=== PATIENT | male | born 1980 | race Caucasian/White ===

== ENCOUNTER 2016-12-07 08:41 | Emergency (ER) | payer OTHER ==
[2016-12-07 08:50] VITALS: BP 116/59; PULSE 85; RESP 16; TEMP 98.1; O2SAT 97
[2016-12-07 08:51] VITALS: BMI 30.9
--- NOTE | 2016-12-07 09:52 | ED PDOC ---
HPI: Skin/Bite Injury Time Seen by Provider: 12/07/16 09:00 Chief Complaint (Nursing): Abnormal Skin Integrity History Per: Patient (states onset of bumps on the back of the left hand 5 days ago. It was slightly itchy. He noticed that it has spread up the left forearm only. There is no other location of rash except for a single lesion on the right thumb. He was seen by his PMD 2 days ago and was started on Keflex for a different rash in the hairline where he had a hair cut. ) History/Exam Limitations: no limitations Past Medical History Reviewed: Historical Data, Nursing Documentation, Vital Signs Vital Signs: Last Vital Signs Temp 98.1 F 12/07/16 08:50 Pulse 85 12/07/16 08:50 Resp 16 12/07/16 08:50 BP 116/59 L 12/07/16 08:50 Pulse Ox 97 12/07/16 08:50 - Medical History PMH: No Chronic Diseases, Hyperlipidemia (not on meds) - Family History Family History: States: No Known Family Hx - Home Medications Home Medications: Ambulatory Orders Medication Instructions Recorded Azithromycin [Zithromax Z-Ron] 250 mg PO DAILY 5 Days tab 09/02/14 Triamcinolone 0.25% [Triamcinolone 1 appl TP BID #15 gr 12/07/16 0.25% Oint] - Allergies Allergies/Adverse Reactions: Allergies Allergy/AdvReac Type Severity Reaction Status Date / Time No Known Allergies Allergy Verified 12/07/16 09:04 Review of Systems ROS Statement: Except As Marked, All Systems Reviewed And Found Negative Constitutional: Negative for: Fever, Chills Respiratory: Negative for: Cough, Shortness of Breath Skin: Positive for: Rash. Negative for: Jaundice, Bruising Physical Exam - Reviewed Nursing Documentation Reviewed: Yes Vital Signs Reviewed: Yes - Physical Exam Appears: Positive for: Well, Non-toxic, No Acute Distress Head Exam: Positive for: ATRAUMATIC, NORMAL INSPECTION, NORMOCEPHALIC Skin: Positive for: Normal Color, Warm, DRY Eye Exam: Positive for: Normal appearance ENT: Positive for: Normal ENT Inspection Neck: Positive for: Normal Respiratory: Negative for: Respiratory Distress Back: Positive for: Normal Inspection Extremity: Positive for: Normal ROM Neurologic/Psych: Positive for: Alert, Oriented - ECG O2 Sat by Pulse Oximetry: 97 Disposition - Clinical Impression Clinical Impression: Dermatitis - Patient ED Disposition Is Patient to be Admitted: No Doctor Will See Patient In The: Office Counseled Patient/Family Regarding: Diagnosis, Need For Followup, Rx Given - Disposition Referrals: Kaleb Coleman MD [Staff Provider] - Disposition: Routine/Home Disposition Time: 09:40 Condition: STABLE Prescriptions: Triamcinolone 0.25% [Triamcinolone 0.25% Oint] 1 appl TP BID #15 gr Instructions: Dermatitis (ED) Forms: [facility] (Greek) - POA Present On Arrival: None
== END 2016-12-07 09:55 | disposition home or self-care (01) ==
LOC: H.ER 08:41
DX: L30.9 Dermatitis, unspecified (principal)

== ENCOUNTER 2018-03-25 04:16 | Emergency (ER) | payer OTHER ==
[2018-03-25 04:16] VITALS: BMI 30.9
[2018-03-25] MEDS ORDERED: Sodium Chloride 0.9% 1,000 ML IV STA (04:43)
--- NOTE | 2018-03-25 04:54 | ED PDOC ---
HPI: Abdomen Time Seen by Provider: 03/25/18 04:31 Chief Complaint (Nursing): Abdominal Pain Chief Complaint (Provider): Abdominal Pain History Per: Patient History/Exam Limitations: no limitations Onset/Duration Of Symptoms: Hrs (x2), Intermittent Episodes Pain Scale Rating Of: 7 Location Of Pain/Discomfort: Other (Right sided) Quality Of Discomfort: Sharp Associated Symptoms: denies: Nausea, Vomiting, Urinary Symptoms Additional Complaint(s): 37 years old male presents to ER for an evaluation of acute onset sharp right sided abdominal pain onset 2 hours ago. Patient reports pain is intermittent and rates it as 7 out of 10 scale. He reports radiation of pain to right flank and right testicle. Patient denies any nausea, vomiting or urinary symptoms. PMD: Yong Todd Past Medical History Reviewed: Historical Data, Nursing Documentation, Vital Signs Vital Signs: Last Vital Signs Temp 98.5 F 03/25/18 04:27 Pulse 62 03/25/18 04:27 Resp 17 03/25/18 04:27 BP 127/87 03/25/18 04:27 Pulse Ox 98 03/25/18 04:27 - Medical History PMH: Hyperlipidemia (not on meds) - Surgical History Other surgeries: Nasal polyps - Family History Family History: States: Unknown Family Hx - Social History Current smoker - smoking cessation education provided: No Alcohol: None Drugs: Denies - Home Medications Home Medications: Ambulatory Orders Medication Instructions Recorded Azithromycin [Zithromax Z-Ron] 250 mg PO DAILY 5 Days tab 09/02/14 Triamcinolone 0.25% [Triamcinolone 1 appl TP BID #15 gr 12/07/16 0.25% Oint] Tamsulosin [Flomax] 0.4 mg PO DAILY #10 cap 03/25/18 traMADol [Ultram] 50 mg PO TID PRN #8 tab 03/25/18 - Allergies Allergies/Adverse Reactions: Allergies Allergy/AdvReac Type Severity Reaction Status Date / Time Penicillins Allergy Mild RASH Verified 03/25/18 04:42 Review of Systems ROS Statement: Except As Marked, All Systems Reviewed And Found Negative Gastrointestinal: Positive for: Abdominal Pain (Right sided). Negative for: Nausea, Vomiting Genitourinary Male: Positive for: Other (Right testicle pain) Physical Exam - Reviewed Nursing Documentation Reviewed: Yes Vital Signs Reviewed: Yes - Physical Exam Appears: Positive for: Well, No Acute Distress Head Exam: Positive for: ATRAUMATIC, NORMOCEPHALIC Skin: Positive for: Normal Color, Warm, Dry Neck: Positive for: Normal, Painless ROM, Supple Cardiovascular/Chest: Positive for: Regular Rate, Rhythm. Negative for: Murmur Respiratory: Positive for: Normal Breath Sounds. Negative for: Wheezing Gastrointestinal/Abdominal: Positive for: Normal Exam, Soft. Negative for: Tenderness Back: Positive for: Normal Inspection. Negative for: L CVA Tenderness, R CVA Tenderness Extremity: Positive for: Normal ROM. Negative for: Pedal Edema, Swelling Neurologic/Psych: Positive for: Alert, Oriented (x3) - Laboratory Results Result Diagrams: 03/25/18 05:20 03/25/18 05:20 - ECG O2 Sat by Pulse Oximetry: 98 (RA) Pulse Ox Interpretation: Normal Medical Decision Making Medical Decision Making: Time: 437 Initial Impression: 37 y/o male with acute renal colic Initial Plan: --CT Abdomen/Pelvis --CMP --Urine dipstick --CBC --Toradol 30 mg IV --Urinalysis 0612 CT Abdomen/Pelvis FINDINGS: The visualized lung bases are unremarkable. Hypodense fatty unenhanced liver. Normal gallbladder and extrahepatic biliary system. Normal unenhanced spleen. Normal pancreas. Normal bilateral adrenal glands. Normal size of the right kidney. There is no right renal mass. There are no right renal calculi. 4.7 mm obstructing stone the right ureter at L3. Mild right hydroureteronephrosis. Normal size of the left kidney. There is no left renal mass. There are no left renal calculi. There is no left hydronephrosis. Normal visualized left ureter. Normal visualized stomach. Normal small intestine. Uncomplicated diverticulosis of the colon. The appendix is visualized and appears normal. There is no demonstrated peritoneal fluid. Normal abdominal aorta. Normal inferior vena cava. Normal retroperitoneum. Normal urinary bladder. There is no pelvic mass lesion or lymphadenopathy. There is no pelvic fluid. Chronic prostatic calcifications. Fat-containing umbilical hernia without incarceration. Normal osseous structures. IMPRESSION: Obstructing stone of the right ureter. 0617 Labs reviewed and show no clinically significant abnormality with the exception of hematuria on urinalysis Patient reports improvement in symptoms and is stable for discharge Clinical impression: Ureteral Calculus Scribe Attestation: Documented by Tracey Schultz, acting as a scribe Luke Vann MD. Provider Scribe Attestation: All medical record entries made by the Scribe were at my direction and per sonally dictated by me. I have reviewed the chart and agree that the record accurately reflects my personal performance of the history, physical exam, medical decision making, and the department course for this patient. I have also personally directed, reviewed, and agree with the discharge instructions and disposition. Disposition - Clinical Impression Clinical Impression: Ureteral calculus, right - Patient ED Disposition Is Patient to be Admitted: No - Disposition Referrals: Ian Medina Jr., MD [Staff Provider] - Disposition: Routine/Home Disposition Time: 06:17 Condition: STABLE Prescriptions: Tamsulosin [Flomax] 0.4 mg PO DAILY #10 cap traMADol [Ultram] 50 mg PO TID PRN #8 tab PRN Reason: flank/abdominal pain Instructions: Kidney Stones in Adults Forms: [facility] (Kazakh) Print Language: BAHRAINI
[2018-03-25 05:38] LABS: BASO # 0.1 K/uL (0.0-0.2); BASO % 0.8 % (0.0-2.0); EOS # 0.1 K/uL (0.0-0.7); EOS % 2.1 % (0.0-4.0); HEMOGLOBIN 13.8 g/dL (12.0-18.0); LYMPH # 2.5 K/uL (1.0-4.3); LYMPH % 35.4 % (20.0-40.0); MEAN CELL VOLUME 86.7 fl (80.0-94.0); MEAN CORPUSCULAR HEMOGLOBIN 29.4 pg (27.0-31.0); MEAN CORPUSCULAR HGB CONC 33.9 g/dL (33.0-37.0); MEAN PLATELET VOLUME 8.7 fl (7.2-11.7); MONO # 0.5 K/uL (0.0-0.8); MONO % 7.1 % (0.0-10.0); NEUT # 3.9 K/uL (1.8-7.0); NEUT % 54.6 % (50.0-75.0); NRBC % 0.1 % (0.0-0.0); RBC 4.69 Mil/uL (4.40-5.90); RED CELL DISTRIBUTION WIDTH 13.1 % (11.5-14.5); WHITE BLOOD COUNT 7.1 K/uL (4.8-10.8)
[2018-03-25 05:45] LABS: ALB/GLOB RATIO 1.3 (1.0-2.1); ALBUMIN 4.5 g/dL (3.5-5.0); ALT/SGPT 73 U/L (21-72); AST/SGOT 43 U/L (17-59); BLOOD UREA NITROGEN 29 mg/dl (9-20); CALCIUM 9.2 mg/dL (8.4-10.2); GFR NON-AFRICAN AMERICAN > 60
[2018-03-25 06:02] LABS: URINE BACTERIA RARE (<OCC); URINE BILIRUBIN NEGATIVE (NEGATIVE); URINE BLOOD LARGE (NEGATIVE); URINE CLARITY CLOUDY (Clear); URINE COLOR AMBER (YELLOW); URINE GLUCOSE (UA) NEG (NEGATIVE); URINE LEUKOCYTE ESTERASE NEG Leu/uL (Negative); URINE PROTEIN 100 mg/dL (NEGATIVE); URINE UROBILINOGEN 0.2-1.0 mg/dL (0.2-1.0)
[2018-03-25 07:04] VITALS: BP 113/66; PULSE 72; RESP 18; TEMP 97.6; O2SAT 97
--- NOTE | 2018-03-25 11:27 | CT ---
Date of service: 03/25/2018 PROCEDURE: CT Abdomen and Pelvis without intravenous contrast HISTORY: renal colic COMPARISON: None. TECHNIQUE: Contiguous images were obtained from the domes of the diaphragms to the upper thighs without the administration of intravenous contrast. Oral contrast was not administered. Radiation dose: Total exam DLP = 746.66 mGy-cm. This CT exam was performed using one or more of the following dose reduction techniques: Automated exposure control, adjustment of the mA and/or kV according to patient size, and/or use of iterative reconstruction technique. FINDINGS: LOWER THORAX: Unremarkable. LIVER: Hepatic steatosis. No gross lesion or ductal dilatation. GALLBLADDER AND BILE DUCTS: Unremarkable. PANCREAS: Unremarkable. No gross lesion or ductal dilatation. SPLEEN: Unremarkable. ADRENALS: Unremarkable. No mass. KIDNEYS AND URETERS: 6 mm proximal right ureteral calculus causing mild hydronephrosis. No hydronephrosis. No solid mass. VASCULATURE: Unremarkable. No aortic aneurysm. No aortic atherosclerotic calcification or mural plaque present. BOWEL: Unremarkable. No obstruction. No gross mural thickening. APPENDIX: Unremarkable. Normal appendix. PERITONEUM: Unremarkable. No free fluid. No free air. LYMPH NODES: Unremarkable. No enlarged lymph nodes. BLADDER: Unremarkable. REPRODUCTIVE: Unremarkable. BONES: No acute fracture. OTHER FINDINGS: None. IMPRESSION: 6 mm proximal right ureteral calculus causing mild hydronephrosis..
--- NOTE | 2018-03-25 13:47 | CARD ---
APPROVED REPORT Date of service: 03/25/2018 EKG Measurement Heart [id number] <Conclusion> Normal sinus rhythm Normal ECG
== END 2018-03-25 06:45 | disposition home or self-care (01) ==
LOC: H.ER 04:16
DX: N20.1 Calculus of ureter (principal); E78.5 Hyperlipidemia, unspecified; Z88.0 Allergy status to penicillin; K57.30 Diverticulosis of large intestine without perforation or abscess without bleeding
CPT/HCPCS: 74176; 80053; 81003; 85025; 93005; 96360; 99283; J1885; J7030

== ENCOUNTER 2018-03-27 14:11 | Inpatient (IN) | payer OTHER ==
[2018-03-27 14:11] VITALS: BMI 30.9
[2018-03-27] MEDS ORDERED: Sodium Chloride 0.9% 1,000 ML IV STA ×2 (15:05→19:21)
[2018-03-27] MEDS ORDERED: Lidocaine 122 MG in Sodium Chloride 0.9% 100 ML IV STA (15:08)
[2018-03-27 15:23] LABS: BASO # 0.1 K/uL (0.0-0.2); BASO % 0.6 % (0.0-2.0); EOS # 0.2 K/uL (0.0-0.7); EOS % 2.1 % (0.0-4.0); HEMOGLOBIN 13.4 g/dL (12.0-18.0); LYMPH % 33.5 % (20.0-40.0); MEAN CELL VOLUME 86.5 fl (80.0-94.0); MEAN CORPUSCULAR HEMOGLOBIN 29.4 pg (27.0-31.0); MEAN PLATELET VOLUME 8.7 fl (7.2-11.7); MONO # 0.5 K/uL (0.0-0.8); MONO % 5.2 % (0.0-10.0); NEUT # 5.3 K/uL (1.8-7.0); NEUT % 58.6 % (50.0-75.0); NRBC % 0.1 % (0.0-0.0); RBC 4.56 Mil/uL (4.40-5.90); RED CELL DISTRIBUTION WIDTH 13.3 % (11.5-14.5)
[2018-03-27 15:38] LABS: ALB/GLOB RATIO 1.3 (1.0-2.1); ALBUMIN 4.4 g/dL (3.5-5.0); ALT/SGPT 66 U/L (21-72); AST/SGOT 33 U/L (17-59); BLOOD UREA NITROGEN 21 mg/dl (9-20); CALCIUM 9.3 mg/dL (8.4-10.2); GFR NON-AFRICAN AMERICAN > 60
--- NOTE | 2018-03-27 15:55 | ED PDOC ---
HPI: Abdomen Time Seen by Provider: 03/27/18 14:38 Chief Complaint (Nursing): Abdominal Pain Chief Complaint (Provider): Abdominal Pain History Per: Patient History/Exam Limitations: no limitations Onset/Duration Of Symptoms: Days Current Symptoms Are (Timing): Still Present Additional Complaint(s): 37 y/o male with a PMHx of hyperlipidemia presents to the ED for evaluation of right sided groin pain radiating to the right flank, onset several days ago. Patient was seen for same symptoms two days ago and diagnosed with a kidney stone. Patient was prescribed with Flomax and Ultram with no relief of symptoms. Patient states pain has not propagated. Otherwise, patient denies fever, vomiting, diarrhea and history of previous kidney stones. PMD: none provided Past Medical History Reviewed: Historical Data, Nursing Documentation, Vital Signs Vital Signs: Last Vital Signs Temp 97.8 F 03/27/18 14:33 Pulse 61 03/27/18 14:33 Resp 18 03/27/18 14:33 BP 130/66 03/27/18 14:33 Pulse Ox 98 03/27/18 14:33 - Medical History PMH: Hyperlipidemia (not on meds), Kidney Stones - Surgical History Surgical History: No Surg Hx - Family History Family History: States: Unknown Family Hx - Home Medications Home Medications: Ambulatory Orders Medication Instructions Recorded Tamsulosin [Flomax] 0.4 mg PO DAILY #10 cap 03/25/18 traMADol [Ultram] 50 mg PO TID PRN #8 tab 03/25/18 - Allergies Allergies/Adverse Reactions: Allergies Allergy/AdvReac Type Severity Reaction Status Date / Time Penicillins Allergy Mild RASH Verified 03/27/18 14:33 Review of Systems ROS Statement: Except As Marked, All Systems Reviewed And Found Negative Constitutional: Negative for: Fever Gastrointestinal: Negative for: Vomiting, Diarrhea Genitourinary Male: Positive for: Other (right groin pain) Musculoskeletal: Positive for: Back Pain (right flank pain) Physical Exam - Reviewed Nursing Documentation Reviewed: Yes Vital Signs Reviewed: Yes - Physical Exam Appears: Positive for: Non-toxic, In Acute Distress (moderate, painful distress, writhing in pain. ) Skin: Positive for: Normal Color, Warm, Dry Eye Exam: Positive for: Normal appearance, EOMI Cardiovascular/Chest: Positive for: Regular Rate, Rhythm Respiratory: Positive for: Normal Breath Sounds. Negative for: Respiratory Distress Gastrointestinal/Abdominal: Positive for: Normal Exam, Soft. Negative for: Tenderness Back: Positive for: R CVA Tenderness. Negative for: L CVA Tenderness Neurologic/Psych: Positive for: Alert, Oriented (x3) - Laboratory Results Result Diagrams: 03/27/18 15:14 03/27/18 15:14 Lab Results: Total Bilirubin 0.4 mg/dl (0.2-1.3) 03/27/18 15:14 AST 33 U/L (17-59) 03/27/18 15:14 ALT 66 U/L (21-72) 03/27/18 15:14 Alkaline Phosphatase 90 U/L (38-126) 03/27/18 15:14 Total Protein 7.6 G/DL (6.3-8.2) 03/27/18 15:14 Albumin 4.4 g/dL (3.5-5.0) 03/27/18 15:14 Globulin 3.3 gm/dL (2.2-3.9) 03/27/18 15:14 Albumin/Globulin Ratio 1.3 (1.0-2.1) 03/27/18 15:14 - ECG O2 Sat by Pulse Oximetry: 98 (RA) Pulse Ox Interpretation: Normal Medical Decision Making Medical Decision Making: Time: 1508 Plan: -- Renal US -- Urinalysis -- IV Insertion -- Plastics Bench Mechanic -- Zofran Inj 4 mg IVP -- Tylenol 975 mg PO -- Toradol 30 mg IVP -- Sodium chloride IV 1000 mls/hr -- Lidoderm 122 mg Sodium Chloride 100 ml IV -- CBC with Differentials -- ED Urine Dipstick -- CMP Time: 1541 Plan: -- KUB -- Case discussed with Dr. Hines, who agrees with plan of care. Time: 154 -- Discussed with Dr. Rosario, Urology conveyor belt installer and informed of previous diagnostic results and current available diagnostic. Provider requests repeat CT despite CT being done two days ago. On re-evaluation, patient appears to be in less pain confirmed initially 11/09 and is now 5-6/10. Patient does report of right testicular pain. KUB and Renal US canceled. Testicular US and CT Abd/Pelvis ordered. On genitourinary exam, normal external genitalian noted with no testicular tenderness, sweling bilaterally or lesions. -- CT Abd/Pelvis w/o PO or IV Contrast -- Testicular US 1820 Pt. reports pain still present but has improved. CT abd/pelvis: Caculus measuring approximately 6x9mm at the R proximal ureter with mild R hydro. Mild R perineprhic stranding. Results d/w Dr. Medina and recommends admission and NPO after midnight. States pt. does not require meds at this time. Case d/w Dr. Noriega and arrangements made for admission. Also requests pt. be given IV Abx. Cipro IV ordered. Pt. informed of plan. All questions answered. Pt. agrees with plan and care. Scribe Attestation: Documented by Pieter Acosta, acting as a scribe for Vasquez Hoover PA-C. Provider Scribe Attestation: All medical record entries made by the Scribe were at my direction and personally dictated by me. I have reviewed the chart and agree that the record accurately reflects my personal performance of the history, physical exam, medical decision making, and the department course for this patient. I have also personally directed, reviewed, and agree with the discharge instructions and disposition. Disposition - Clinical Impression Clinical Impression: Nephrolithiasis - Patient ED Disposition Is Patient to be Admitted: Yes - Disposition Disposition Time: 18:20 Condition: FAIR - Pt Status Changed To: Hospital Disposition Of: Inpatient - Admit Certification Admit to Inpatient:: After my assessment, the patient will require hospitalization for at least two midnights. This is because of the severity of symptoms shown, intensity of services needed, and/or the medical risk in this patient being treated as an outpatient.
--- NOTE | 2018-03-27 17:30 | US ---
Date of service: 03/27/2018 PROCEDURE: Ultrasound of the Kidneys HISTORY: Right renal calculi COMPARISON: None available. TECHNIQUE: Sonogram of the kidneys. FINDINGS: RIGHT KIDNEY: Measures: 10.9 x 5.9 x 6.0 cm. Normal in size, contour and echogenicity.. There is mild right-sided hydronephrosis. No shadowing calculi or solid mass lesion visualized. Mild right-sided hydronephrosis. LEFT KIDNEY: Measures: 11.5 x 4.6 x 5.0 cm. Normal in size, contour and echogenicity. No stone, solid mass lesion or hydronephrosis visualized. OTHER FINDINGS: Urinary bladder prevoid volume calculated at 141 cc.. Both both ureteral jets are visualized. IMPRESSION: Mild right-sided hydronephrosis.
--- NOTE | 2018-03-27 17:32 | US ---
Date of service: 03/27/2018 HISTORY: R testicular pain TECHNIQUE: Realtime sonography through the scrotum with color and doppler flow. COMPARISON: No prior study available for comparison FINDINGS: RIGHT TESTICLE: Measures 4.0 x 2.5 x 2.0 cm. Normal echotexture and flow. RIGHT EPIDIDYMIS: Epididymal head measures 1.1 x 0.8 x 1.3 with small cyst and/or spermatocele measuring 5 mm in greatest dimension. A the grossly unremarkable appearance with normal flow. LEFT TESTICLE: Measures 4.1 x 2.6 x 2.1 cm. Normal echotexture and flow. LEFT EPIDIDYMIS: Epididymal head measures 1.0 x 0.7 x 1.0 cm. Grossly unremarkable appearance with normal flow. HYDROCELE: There are bilateral hydroceles present. VARICOCELE: None. OTHER FINDINGS: None. IMPRESSION: The small bilateral hydroceles. Small cyst and/or spermatocele right epididymis.
[2018-03-27 17:34] LABS: SQUAMOUS EPITHIAL < 1 /hpf (0-5); URINE BILIRUBIN NEGATIVE (NEGATIVE); URINE BLOOD MODERATE (NEGATIVE); URINE CLARITY CLEAR (Clear); URINE COLOR YELLOW (YELLOW); URINE GLUCOSE (UA) NEG (NEGATIVE); URINE LEUKOCYTE ESTERASE NEG Leu/uL (Negative); URINE PROTEIN NEGATIVE (NEGATIVE); URINE UROBILINOGEN 0.2-1.0 mg/dL (0.2-1.0)
[2018-03-27] MEDS ORDERED: Ciprofloxacin 400mg/200ml D5W 400 MG/200 ML BAG IVPB STA (19:21)
[2018-03-27 21:17] LABS: PROTHROMBIN TIME 10.9 Seconds (9.8-13.1)
[2018-03-27 21:21] LABS: PARTIAL THROMBOPLASTIN TIME 37.1 Seconds (25.6-37.1)
[2018-03-27] MEDS: Sodium Chloride 0.45% 1,000 ML IV SCH (22:37)
[2018-03-28] MEDS: Sodium Chloride 0.45% 1,000 ML IV SCH ×2 (08:44→08:59)
[2018-03-28] MEDS ORDERED: Ciprofloxacin 400mg/200ml D5W 400 MG/200 ML BAG IVPB SCH (09:00)
[2018-03-28] MEDS ORDERED: Enoxaparin 40 mg Syringe SC SCH (09:00)
--- NOTE | 2018-03-28 10:00 | CT ---
Date of service: 03/27/2018 PROCEDURE: CT Abdomen and Pelvis.. HISTORY: 4.7mm right ureteral stone COMPARISON: Comparison made with prior study 03/25/2018 TECHNIQUE: Contiguous helical/transaxial images of the abdomen and pelvis performed without oral or intravenous contrast material. Additional 2D sagittal and coronal reformats generated. Radiation dose: Total exam DLP = 800.92 mGy-cm. This CT exam was performed using one or more of the following dose reduction techniques: Automated exposure control, adjustment of the mA and/or kV according to patient size, and/or use of iterative reconstruction technique. FINDINGS: LOWER THORAX: Lung bases clear. No infiltrate effusion or basilar pneumothorax. Small hiatal hernia LIVER: Liver is borderline/mildly enlarged measuring nearly 19 cm in CC dimension. Moderate diffuse fatty hepatic infiltration.. GALLBLADDER AND BILE DUCTS: Unremarkable. PANCREAS: Unremarkable. No mass. No ductal dilatation. SPLEEN: Unremarkable. No splenomegaly. ADRENALS: Unremarkable. KIDNEYS AND URETERS: There is a 5.9 by 9 mm obstructing calculus within the proximal/right ureter at the UVJ region with mild right-sided hydronephrosis. BLADDER: Grossly unremarkable. REPRODUCTIVE: Unremarkable. APPENDIX: Appendix unremarkable BOWEL: Evaluation of the bowel slightly limited due to lack of oral contrast material. The stomach is the partially distended with food debris liquid and air. Visualized loops of small bowel exhibit normal contour and caliber. No evidence of acute mechanical small bowel obstruction. Cecum, ascending as well as transverse colon with lesser amount throughout the remaining colon. Findings suggest mild constipation. The is ascending PERITONEUM: Unremarkable. No fluid collection. No free air. Small fat containing umbilical hernia. LYMPH NODES: Unremarkable. No enlarged lymph nodes. VASCULATURE: Unremarkable. No aortic aneurysm. No aortic atherosclerotic calcification or mural plaque present. BONES: No fracture or destructive lesion. OTHER FINDINGS: None. IMPRESSION: 5.9 x 9.0 mm calculus UPJ region right ureter with mild right-sided hydronephrosis. Borderline/mild hepatomegaly with moderate fatty hepatic infiltration.
[2018-03-28] MEDS ORDERED: Gentamicin 80mg/50ml NS 160 MG/100 ML BAG IVPB ONE (10:18)
[2018-03-28] MEDS ORDERED: Lidocaine 2% Jelly (Uro-Jet) ONE (10:18)
[2018-03-28] MEDS ORDERED: Propofol 10 mg/ml Inj (20 ML) ONE (10:18)
[2018-03-28] MEDS ORDERED: Midazolam 2 MG/2 ML VIAL ONE (10:45)
[2018-03-28] MEDS ORDERED: Lactated Ringer's 1,000 ML IV ONE (10:45)
--- NOTE | 2018-03-28 10:45 | CP.PCM.HP ---
History of Present Illness - History of Present Illness History of Present Illness: CC: Right Groin Pain History of Present Illness: A 37 y/o male with a PMHx of hyperlipidemia presents to the ED for evaluation of right sided groin pain radiating to the right flank, onset several days ago. Patient was seen for same symptoms two days ago and diagnosed with a kidney stone. Patient was prescribed with Flomax and Ultram with no relief of symptoms. Patient states pain has not propagated. Otherwise, patient denies fever, vomiting, diarrhea and history of previous kidney stones. Present on Admission - Present on Admission Any Indicators Present on Admission: No Review of Systems - Review of Systems All systems: reviewed and no additional remarkable complaints except Review of Systems: as Per HPI Past Patient History - Past Medical History & Family History Past Medical History?: Yes Past Family History: Reviewed and not pertinent - Past Social History Smoking Status: Never Smoked Alcohol: Social Drugs: Denies - CARDIAC Hx Cardiac Disorders: Yes Other/Comment: hyperlipidemia - PULMONARY Hx Respiratory Disorders: No - NEUROLOGICAL Hx Neurological Disorder: No - HEENT Hx HEENT Problems: Yes Other/Comment: history of nasal polyps - RENAL Hx Chronic Kidney Disease: Yes Hx Kidney Stones: Yes - ENDOCRINE/METABOLIC Hx Endocrine Disorders: No - HEMATOLOGICAL/ONCOLOGICAL Hx Blood Disorders: No - INTEGUMENTARY Hx Dermatological Problems: No - MUSCULOSKELETAL/RHEUMATOLOGICAL Hx Musculoskeletal Disorders: No Hx Falls: No - GASTROINTESTINAL Hx Gastrointestinal Disorders: No - GENITOURINARY/GYNECOLOGICAL Hx Genitourinary Disorders: Yes Other/Comment: renal calculus obstruction - PSYCHIATRIC Hx Psychophysiologic Disorder: No Hx Substance Use: No - SURGICAL HISTORY Hx Surgeries: Yes Other/Comment: removal of nasal polyps - ANESTHESIA Hx Anesthesia: Yes Hx Anesthesia Reactions: No Meds Allergies/Adverse Reactions: Allergies Allergy/AdvReac Type Severity Reaction Status Date / Time Penicillins Allergy Mild RASH Verified 03/27/18 14:33 Results - Vital Signs Recent Vital Signs: Last Vital Signs Temp 97.7 F 03/28/18 10:00 Pulse 60 03/28/18 10:00 Resp 20 03/28/18 10:00 BP 110/69 03/28/18 10:00 Pulse Ox 96 03/28/18 10:00 - Labs Result Diagrams: 03/27/18 15:14 03/27/18 15:14 Labs: Laboratory Results - last 24 hr 03/27/18 03/27/18 03/27/18 15:14 15:14 17:16 WBC 9.0 RBC 4.56 Hgb 13.4 Hct 39.5 MCV 86.5 MCH 29.4 MCHC 34.0 RDW 13.3 Plt Count 250 MPV 8.7 Neut % (Auto) 58.6 Lymph % (Auto) 33.5 [place] % (Auto) 5.2 Eos % (Auto) 2.1 Baso % (Auto) 0.6 Neut # (Auto) 5.3 Lymph # (Auto) 3.0 [place] # (Auto) 0.5 Eos # (Auto) 0.2 Baso # (Auto) 0.1 PT INR APTT Sodium 139 Potassium 4.1 Chloride 98 Carbon Dioxide 28 Anion Gap 17 BUN 21 H Creatinine 1.1 Est GFR ( Amer) > 60 Est GFR (Non-Af Amer) > 60 Random Glucose 119 H Calcium 9.3 Total Bilirubin 0.4 AST 33 ALT 66 Alkaline Phosphatase 90 Total Protein 7.6 Albumin 4.4 Globulin 3.3 Albumin/Globulin Ratio 1.3 Urine Color Yellow Urine Clarity Clear Urine pH 6.0 Ur Specific [place] 1.014 Urine Protein Negative Urine Glucose (UA) Neg Urine Ketones Negative Urine Blood Moderate Urine Nitrate Negative Urine Bilirubin Negative Urine Urobilinogen 0.2-1.0 Ur Leukocyte Esterase Neg Urine RBC (Auto) 12 H Urine Microscopic WBC 1 Ur Squamous Epith Cells < 1 03/27/18 20:56 WBC RBC Hgb Hct MCV MCH MCHC RDW Plt Count MPV Neut % (Auto) Lymph % (Auto) [place] % (Auto) Eos % (Auto) Baso % (Auto) Neut # (Auto) Lymph # (Auto) [place] # (Auto) Eos # (Auto) Baso # (Auto) PT 10.9 INR 1.0 APTT 37.1 Sodium Potassium Chloride Carbon Dioxide Anion Gap BUN Creatinine Est GFR ( Amer) Est GFR (Non-Af Amer) Random Glucose Calcium Total Bilirubin AST ALT Alkaline Phosphatase Total Protein Albumin Globulin Albumin/Globulin Ratio Urine Color Urine Clarity Urine pH Ur Specific [place] Urine Protein Urine Glucose (UA) Urine Ketones Urine Blood Urine Nitrate Urine Bilirubin Urine Urobilinogen Ur Leukocyte Esterase Urine RBC (Auto) Urine Microscopic WBC Ur Squamous Epith Cells - Imaging and Cardiology CT scan Asbdome/Pelvis:\ Additional comment: Date of service: 03/27/2018 PROCEDURE: CT Abdomen and Pelvis.. HISTORY: 4.7mm right ureteral stone COMPARISON: Comparison made with prior study 03/25/2018 TECHNIQUE: Contiguous helical/transaxial images of the abdomen and pelvis performed without oral or intravenous contrast material. Additional 2D sagittal and coronal reformats generated. Radiation dose: Total exam DLP = 800.92 mGy-cm. This CT exam was performed using one or more of the following dose reduction techniques: Automated exposure control, adjustment of the mA and/or kV according to patient size, and/or use of iterative reconstruction technique. FINDINGS: LOWER THORAX: Lung bases clear. No infiltrate effusion or basilar pneumothorax. Small hiatal hernia LIVER: Liver is borderline/mildly enlarged measuring nearly 19 cm in CC dimension. Moderate diffuse fatty hepatic infiltration.. GALLBLADDER AND BILE DUCTS: Unremarkable. PANCREAS: Unremarkable. No mass. No ductal dilatation. SPLEEN: Unremarkable. No splenomegaly. ADRENALS: Unremarkable. KIDNEYS AND URETERS: There is a 5.9 by 9 mm obstructing calculus within the proximal/right ureter at the UVJ region with mild right-sided hydronephrosis. BLADDER: Grossly unremarkable. REPRODUCTIVE: Unremarkable. APPENDIX: Appendix unremarkable BOWEL: Evaluation of the bowel slightly limited due to lack of oral contrast material. The stomach is the partially distended with food debris liquid and air. Visualized loops of small bowel exhibit normal contour and caliber. No evidence of acute mechanical small bowel obstruction. Cecum, ascending as well as transverse colon with lesser amount throughout the remaining colon. Findings suggest mild constipation. The is ascending PERITONEUM: Unremarkable. No fluid collection. No free air. Small fat containing umbilical hernia. LYMPH NODES: Unremarkable. No enlarged lymph nodes. VASCULATURE: Unremarkable. No aortic aneurysm. No aortic atherosclerotic calcification or mural plaque present. BONES: No fracture or destructive lesion. OTHER FINDINGS: None. IMPRESSION: 5.9 x 9.0 mm calculus UPJ region right ureter with mild right-sided hydronephrosis. Borderline/mild hepatomegaly with moderate fatty hepatic infiltration. Assessment & Plan (1) Ureteral calculus, right Assessment and Plan: with Right Hydronephrosis NPO Past Midnight for Cystoscopy and Possible stents IVF IV Ciprofloxacin Pain medication PRN Flomax Urology Consulted Status: Acute Priority: High
[2018-03-28] MEDS ORDERED: HYDROmorphone 0.5 mg/0.5 ml ISec IVP PRN (11:19)
[2018-03-28] MEDS ORDERED: Lactated Ringer's 1,000 ML IV SCH (11:30)
--- NOTE | 2018-03-28 14:15 | RAD ---
Date of service: 03/27/2018 HISTORY: Preoperative assessment COMPARISON: Comparison made with prior study 09/02/2014 TECHNIQUE: Chest PA and lateral FINDINGS: LUNGS: No active pulmonary disease. PLEURA: No significant pleural effusion identified. No pneumothorax apparent. CARDIOVASCULAR: No aortic atherosclerotic calcification present. Normal cardiac size. No pulmonary vascular congestion. OSSEOUS STRUCTURES: No significant abnormalities. VISUALIZED UPPER ABDOMEN: Normal. OTHER FINDINGS: None. IMPRESSION: No active disease.
[2018-03-28 16:38] VITALS: BP 116/71; PULSE 62; RESP 18; TEMP 98.4; O2SAT 97
--- NOTE | 2018-03-28 21:37 | CARD ---
APPROVED REPORT Date of service: 03/28/2018 EKG Measurement Heart [id number] <Conclusion> Sinus bradycardia Otherwise normal ECG
--- NOTE | 2018-03-28 22:16 | CP.PCM.DIS ---
Provider - Provider Date of Admission: 03/27/18 19:17 Attending physician: Car Noriega MD Consults: 03/27/18 18:57 Urology Consult Stat Comment: Consulting Provider: Ian Medina Jr. Consulting Physician: Ian Medina Jr. Reason for Consult: kidney stone Time Spent in preparation of Discharge (in minutes): 20 Diagnosis - Discharge Diagnosis (1) Hydronephrosis Status: Acute (2) UTI (urinary tract infection) Status: Acute Priority: Medium (3) Ureteral calculus, right Status: Acute Priority: High Hospital Course - Lab Results Lab Results: Most Recent Lab Values WBC 9.0 K/uL (4.8-10.8) 03/27/18 15:14 RBC 4.56 Mil/uL (4.40-5.90) 03/27/18 15:14 Hgb 13.4 g/dL (12.0-18.0) 03/27/18 15:14 Hct 39.5 % (35.0-51.0) 03/27/18 15:14 MCV 86.5 fl (80.0-94.0) 03/27/18 15:14 MCH 29.4 pg (27.0-31.0) 03/27/18 15:14 MCHC 34.0 g/dL (33.0-37.0) 03/27/18 15:14 RDW 13.3 % (11.5-14.5) 03/27/18 15:14 Plt Count 250 K/uL (130-400) 03/27/18 15:14 MPV 8.7 fl (7.2-11.7) 03/27/18 15:14 Neut % (Auto) 58.6 % (50.0-75.0) 03/27/18 15:14 Lymph % (Auto) 33.5 % (20.0-40.0) 03/27/18 15:14 [place] % (Auto) 5.2 % (0.0-10.0) 03/27/18 15:14 Eos % (Auto) 2.1 % (0.0-4.0) 03/27/18 15:14 Baso % (Auto) 0.6 % (0.0-2.0) 03/27/18 15:14 Neut # (Auto) 5.3 K/uL (1.8-7.0) 03/27/18 15:14 Lymph # (Auto) 3.0 K/uL (1.0-4.3) 03/27/18 15:14 [place] # (Auto) 0.5 K/uL (0.0-0.8) 03/27/18 15:14 Eos # (Auto) 0.2 K/uL (0.0-0.7) 03/27/18 15:14 Baso # (Auto) 0.1 K/uL (0.0-0.2) 03/27/18 15:14 PT 10.9 Seconds (9.8-13.1) 03/27/18 20:56 INR 1.0 03/27/18 20:56 APTT 37.1 Seconds (25.6-37.1) 03/27/18 20:56 Sodium 139 mmol/l (132-148) 03/27/18 15:14 Potassium 4.1 MMOL/L (3.6-5.0) 03/27/18 15:14 Chloride 98 mmol/L (98-107) 03/27/18 15:14 Carbon Dioxide 28 mmol/L (22-30) 03/27/18 15:14 Anion Gap 17 (10-20) 03/27/18 15:14 BUN 21 mg/dl (9-20) H 03/27/18 15:14 Creatinine 1.1 mg/dl (0.8-1.5) 03/27/18 15:14 Est GFR ( Amer) > 60 03/27/18 15:14 Est GFR (Non-Af Amer) > 60 03/27/18 15:14 Random Glucose 119 mg/dL (75-110) H 03/27/18 15:14 Calcium 9.3 mg/dL (8.4-10.2) 03/27/18 15:14 Total Bilirubin 0.4 mg/dl (0.2-1.3) 03/27/18 15:14 AST 33 U/L (17-59) 03/27/18 15:14 ALT 66 U/L (21-72) 03/27/18 15:14 Alkaline Phosphatase 90 U/L (38-126) 03/27/18 15:14 Total Protein 7.6 G/DL (6.3-8.2) 03/27/18 15:14 Albumin 4.4 g/dL (3.5-5.0) 03/27/18 15:14 Globulin 3.3 gm/dL (2.2-3.9) 03/27/18 15:14 Albumin/Globulin Ratio 1.3 (1.0-2.1) 03/27/18 15:14 Urine Color Yellow (YELLOW) 03/27/18 17:16 Urine Clarity Clear (Clear) 03/27/18 17:16 Urine pH 6.0 (5.0-8.0) 03/27/18 17:16 Ur Specific [place] 1.014 (1.003-1.030) 03/27/18 17:16 Urine Protein Negative mg/dL (NEGATIVE) 03/27/18 17:16 Urine Glucose (UA) Neg mg/dL (NEGATIVE) 03/27/18 17:16 Urine Ketones Negative mg/dL (NEGATIVE) 03/27/18 17:16 Urine Blood Moderate (NEGATIVE) 03/27/18 17:16 Urine Nitrate Negative (NEGATIVE) 03/27/18 17:16 Urine Bilirubin Negative (NEGATIVE) 03/27/18 17:16 Urine Urobilinogen 0.2-1.0 mg/dL (0.2-1.0) 03/27/18 17:16 Ur Leukocyte Esterase Neg [place]/uL (Negative) 03/27/18 17:16 Urine RBC (Auto) 12 /hpf (0-3) H 03/27/18 17:16 Urine Microscopic WBC 1 /hpf (0-5) 03/27/18 17:16 Ur Squamous Epith Cells < 1 /hpf (0-5) 03/27/18 17:16 Discharge Plan - Follow Up Plan Condition: FAIR Disposition: HOME/ ROUTINE Instructions: Cystoscopy, Ureteral Stent (DC) Additional Instructions: No heavy lifting Follow-up with Dr Medina in 1 week - [phone] Follow-up with Dr. Noriega in 1 week - [phone]
--- NOTE | 2018-03-29 00:33 | OP ---
PROCEDURE DATE: 03/28/2018 PREOPERATIVE DIAGNOSIS: Right upper ureteral calculi. POSTOPERATIVE DIAGNOSIS: Right upper ureteral calculi. PROCEDURE: Cystoscopy and insertion of double-J stent. FINDINGS: A stone impacted at the right UPJ. DESCRIPTION OF PROCEDURE: The patient was draped and prepped in the usual manner after a time-out was taken according to rules and regulations of [facility]. Prior to procedure, he had signed a detailed informed consent. After all risks, complications and alternate methods of managing a upper ureteral calculi were reviewed with the patient, he elected to proceed with cystoscopy and stent insertion and fully is aware that other procedures will be necessary to break or remove the stone. The patient was brought in the room. A time-out was taken according to the rules and regulations of [facility] and the patient was placed on the table. He was placed in lithotomy position and cystoscoped with a #21 Storz panendoscope. The patient's pendulous membranous urethra was normal. Prostatic urethra showed minimal to moderate bladder outlet obstruction from lateral lobe enlargement. The bladder was entered atraumatically. There were no stones within the bladder. The left ureteral orifice effluxed clear urine. There was no efflux from the right. A Sensor-tip guidewire was passed into the right ureteral orifice and under fluoroscopic control passed up above the stone and into the renal pelvis. A 6-[place] double-J stent was then passed over this guidewire and the stent was deployed leaving the distal end curled within the bladder. The patient tolerated this procedure well. He was sent to the recovery room in good condition. I discussed this case with Dr. Noriega, the admitting physician and the patient's father and mother. The patient will return to our office next week for further treatment. Ian Medina MD
--- NOTE | 2018-03-29 08:56 | CON ---
DATE: 03/27/2018 CHIEF COMPLAINT: Right flank pain. HISTORY OF PRESENT ILLNESS: The patient was in the emergency room at [facility] several days ago and was diagnosed with right upper ureteral calculi. He was placed on Flomax and pain medications, discharged and told to follow up with the urologist. He failed to follow up the urologist. The pain returned and it was more severe. He came back to the emergency room. While in the emergency room, the patient was evaluated with a repeat CT, which shows a stone at the right UPJ. The patient is still complaining of pain even though he has been medicated. The patient has no history of prior calculi. PHYSICAL EXAMINATION: VITAL SIGNS: Within normal limits. HEAD, EARS, EYES, NOSE AND THROAT: Within normal limits. NECK: Supple. There are no bruits, nodes or masses. CHEST: Clear. There are no rales or rhonchi. There are good breath sounds bilaterally. HEART: Normal sinus rhythm. ABDOMEN: Soft. There is no anterior abdominal tenderness. There is no guarding or rebound. There is mild right CVA tenderness. The kidneys are not palpably enlarged. There is no palpable bladder distention. GENITALIA: The testicles, epididymitis, cord, and penis are normal. RECTAL: Declined by the patient. EXTREMITIES: Normal. Full range of motion. Full strength. NEUROLOGIC: Normal. INTEGUMENT: Normal. I have reviewed the CAT scan films and reports as well as the laboratory data. IMPRESSION: My impression is right renal calculi. PLAN: We will keep the patient n.p.o. If he fails to pass the stone by tomorrow, we will pass a double-J stent. The patient agrees with this management plan. Ian Medina MD
--- NOTE | 2018-03-30 11:45 | RAD ---
Date of service: 03/28/2018 PROCEDURE: Intraoperative Fluoroscopy. HISTORY: FLUOROSCOPY FINDINGS: Fluoroscopic assistance was provided. Total fluoroscopic time (continuous mode) utilized during the procedure 9.3 seconds. Total exam DLP: 1.61 (mGy). Please refer to the operative report from TE[facility] Peter.
== END 2018-03-28 17:15 | disposition home or self-care (01) | DRG 660 ==
LOC: H.ER 14:11 → H.ERHOLD 19:17 → H.MEDSURG1 21:21
PROVIDERS: ADMIT Internal Medicine; ATTEND Internal Medicine
PROC: 0T768DZ Dilation of Right Ureter with Intraluminal Device, Via Natural or Artificial Opening Endoscopic (ICD-10-PCS; principal; 2018-03-28 10:30)
DX: N20.1 Calculus of ureter (principal); N13.30 Unspecified hydronephrosis; N39.0 Urinary tract infection, site not specified; E78.5 Hyperlipidemia, unspecified; N18.9 Chronic kidney disease, unspecified; Z87.442 Personal history of urinary calculi; Z79.899 Other long term (current) drug therapy; R16.0 Hepatomegaly, not elsewhere classified